=== PATIENT | female | born 1985 | race Caucasian/White ===

== ENCOUNTER 2017-04-03 22:49 | Emergency (ER) | payer MEDICAID, MEDICARE ==
[~2017-04-03] VITALS: Ht 165.1 cm; Wt 82.0 kg
[~2017-04-03 22:49] MED LIST: LEVE500 PO; ZONE100C4 PO
[2017-04-03 22:56] VITALS: BP 117/69; PULSE 78; RESP 18; TEMP 98.2; O2SAT 96
[2017-04-03] MEDS ORDERED: CLON.5 PO (23:14)
[2017-04-03] MEDS ORDERED: MORPHINE SULFATE 4 MG/ML INJ IV PUSH ONE (23:15)
[2017-04-03] MEDS ORDERED: LORazepam 2 MG/ML VIAL IV PUSH ONE (23:15)
--- NOTE | 2017-04-03 23:24 | PD ---
HPI . Seizure with resultant injury to her head and neck Chief Complaint: Seizure Time Seen by Provider: 23:05 Travel History International Travel<30 days: No Contact w/Intl Traveler<30days: No Traveled to known affect area: No History of Present Illness HPI Patient presents stating that she had a seizure tonight and fell and hit her head. She is now complaining of pain in the back of her head and in her neck. She states the pain is starting to radiate down into her back. Her states that she witnessed the seizure and that it was a grand mal seizure. She states that the patient fell straight backward and struck her head on the floor. It is a tile floor. She reports her last seizure was about a year ago. She reports compliance with medications. She reports no known reason for a breakthrough seizure such as alcohol or drug use, lack of sleep etc. The only injury was to her head and neck. She did not bite her tongue. No injury to her arms or legs. No bowel or bladder incontinence. Her neck pain is exacerbated by movement. She rates her head and neck pain as 10/10. PFSH Past Medical History Bipolar Disorder: Yes Anxiety: Yes Diminished Hearing: No Immunizations Current: Yes Seizures: Yes Tetanus Vaccination: < 5 Years ?: Not LMP: 03/22/2017 : 0 Past Surgical History Surgical History: No Previous Surgery Social History Alcohol Use: Yes (occasionaly ) Tobacco Use: No Substance Use: No Allergies-Medications (Allergen,Severity, Reaction): Coded Allergies: metoclopramide (Verified Allergy, Severe, 04/03/17) Reported Meds & Prescriptions Reported Meds & Active Scripts Active Reported Klonopin (Clonazepam) 0.5 Mg Tab 0.5 Mg PO TID Zonegran (Zonisamide) 100 Mg Cap 400 Mg PO DAILY Keppra (Levetiracetam) 500 Mg Tab 2,000 Mg PO DAILY Review of Systems Except as stated in HPI: all other systems reviewed are Neg HENT: Positive: Headaches, Neck Pain Neurologic: Positive: Seizures Physical Exam Narrative GENERAL: Awake and alert and fully oriented. SKIN: Warm and dry with no rash or lesions. HEAD: Normocephalic/atraumatic. EYES: Pupils are equal. Extraocular movements are intact. ENT: Mucous membranes are moist. No injury to the tongue. NECK: Diffusely tender. CARDIOVASCULAR: Regular rate and rhythm. RESPIRATORY: Nonlabored. MUSCULOSKELETAL: Atraumatic. NEUROLOGICAL: A and O 3. Radial nerves are intact. Peripheral exam is nonfocal. [id number] exam is intact. PSYCHIATRIC: Appropriate mood and affect. Data Data Last Documented VS Vital Signs Date Time Temp Pulse Resp B/P (MAP) Pulse Ox O2 Delivery O2 Flow Rate FiO2 04/03/17 23:54 15 04/03/17 22:56 98.2 78 117/69 (85) [address] Brain W/O Iv Contrast(Rout) (04/03/17 23:09) Ct Cerv Spine W/O Contrast (04/03/17 23:09) ^ Saline Lock (04/03/17 23:09) Lorazepam Inj (Ativan Inj) (04/03/17 23:15) Morphine Inj (Morphine Inj) (04/03/17 23:15) MDM Medical Decision Making Medical Screen Exam Complete: Yes Emergency Medical Condition: Yes Medical Record Reviewed: Yes (patient does have a history of a seizure disorder. She also has a history of syncope.) Differential Diagnosis My differential diagnosis of head trauma includes but is not limited to scalp contusion, concussion, intracerebral hemorrhage. Narrative Course This patient presents with an injury to her head and neck following a seizure. She has a known history of seizures. I have ordered a CT of her head and neck for further evaluation of the injury. I will treat her with Ativan and morphine. Last Impressions Head CT 04/03/172308 Signed Impressions: Service Date/Time: Monday, April 03, 2017 23:44 - CONCLUSION: Normal examination. Bennie White MD Cervical Spine CT 04/03/172308 Signed Impressions: Service Date/Time: Monday, April 03, 2017 23:44 - CONCLUSION: Normal examination. Bennie White MD Diagnosis Primary Impression: Seizure Additional Impressions: Head injury Qualified Codes: S09.90XA - Unspecified injury of head, initial encounter Neck strain Qualified Codes: S16.1XXA - Strain of muscle, fascia and tendon at neck level , initial encounter Patient Instructions: Cervical Strain (DC), General Instructions, Generalized Tonic Clonic Seizures (DC), Scalp Contusion in Adults (ED) Med/Other Pt SpecificInfo: Prescription(s) given Scripts Cyclobenzaprine (Flexeril) 10 Mg Tab 10 MG PO TID for Muscle Spasm, #30 TAB 0 Refills Prov: Corina Hartman MD 04/04/17 Acetaminophen-Codeine (Tylenol-Codeine #3) 300-30 mg Tab 1 TAB PO Q4H Y for PAIN, #12 TAB 0 Refills Prov: Corina Hartman MD 04/04/17 Disposition: 01 DISCHARGE HOME Condition: Stable Corina Hartman MD Apr 03, 2017 23:24
[2017-04-03 23:54] VITALS: RESP 15
--- NOTE | 2017-04-04 00:11 | RADRPT ---
EXAM DATE/TIME: 04/03/2017 23:44 [facility] COMPARISON: No previous studies available for comparison. INDICATIONS : Head and neck pain post seizure. RADIATION DOSE: 28.35 CTDIvol (mGy) MEDICAL HISTORY : Seizures. SURGICAL HISTORY : None. ENCOUNTER: Initial ACUITY: 1 day PAIN SCALE: 6/10 LOCATION: cranial TECHNIQUE: Multiple contiguous axial images were obtained of the head. Using automated exposure control and adj ustment of the mA and/or kV according to patient size, radiation dose was kept as low as reasonably a chievable to obtain optimal diagnostic quality images. DICOM format image data is available electro nically for review and comparison. FINDINGS: CEREBRUM: The ventricles are normal for age. No evidence of midline shift, mass lesion, hemorrhage or acute in farction. No extra-axial fluid collections are seen. POSTERIOR FOSSA: The cerebellum and brainstem are intact. The 4th ventricle is midline. The cerebellopontine angle i s unremarkable. EXTRACRANIAL: The visualized portion of the orbits is intact. SKULL: The calvaria is intact. No evidence of skull fracture. CONCLUSION: Normal examination. Bennie hWite MD on April 04, 2017 at 0:09 Board Certified Radiologist. This report was verified electronically.
--- NOTE | 2017-04-04 00:13 | RADRPT ---
EXAM DATE/TIME: 04/03/2017 23:44 [facility] COMPARISON: No previous studies available for comparison. INDICATIONS : Trauma, fall. Post seizure. RADIATION DOSE: 19.49 CTDIvol (mGy) MEDICAL HISTORY : Seizures. SURGICAL HISTORY : None. ENCOUNTER: Initial ACUITY: 1 day PAIN SCALE: 7/10 LOCATION: neck TECHNIQUE: Volumetric scanning of the cervical spine was performed. Multiplanar reconstructions in the sagittal, coronal and oblique axial planes were performed. Using automated exposure control and adjustment o f the mA and/or kV according to patient size, radiation dose was kept as low as reasonably achievable to obtain optimal diagnostic quality images. DICOM format image data is available electronically f or review and comparison. FINDINGS: VERTEBRAE: Normal vertebral body height. ALIGNMENT: No evidence of subluxation. C2-C3: The bony spinal canal is normal in size. No evidence of disc bulge or herniation. The neural forami na are bilaterally patent. C3-C4: The bony spinal canal is normal in size. No evidence of disc bulge or herniation. The neural forami na are bilaterally patent. C4-C5: The bony spinal canal is normal in size. No evidence of disc bulge or herniation. The neural forami na are bilaterally patent. C5-C6: The bony spinal canal is normal in size. No evidence of disc bulge or herniation. The neural forami na are bilaterally patent. C6-C7: The bony spinal canal is normal in size. No evidence of disc bulge or herniation. The neural forami na are bilaterally patent. C7-T1: The bony spinal canal is normal in size. No evidence of disc bulge or herniation. The neural forami na are bilaterally patent. CONCLUSION: Normal examination. Bennie White MD on April 04, 2017 at 0:09 Board Certified Radiologist. This report was verified electronically.
[2017-04-04] MEDS ORDERED: CYCL1TAB29 PO (00:24)
[2017-04-04] MEDS ORDERED: TYLETAB34 PO (00:24)
[2017-04-04 00:46] VITALS: BP 90/59
== END 2017-04-04 00:56 | disposition home or self-care (01) ==
LOC: NEPD 22:49
DX: G40.409 Other generalized epilepsy and epileptic syndromes, not intractable, without status epilepticus (principal); S09.90XA Unspecified injury of head, initial encounter; S16.1XXA Strain of muscle, fascia and tendon at neck level, initial encounter; F31.9 Bipolar disorder, unspecified; F41.9 Anxiety disorder, unspecified; W18.30XA Fall on same level, unspecified, initial encounter; Z79.899 Other long term (current) drug therapy
CPT/HCPCS: 70450; 72125; 96374; 96375; 99285; J2060; J2270

== ENCOUNTER 2017-04-04 13:19 | Emergency (ER) | payer MEDICAID, MEDICARE ==
[~2017-04-04 13:19] MED LIST changes: +CLON.5 PO; +CYCL1TAB29 PO; +TYLETAB34 PO
[2017-04-04 13:22] VITALS: BP 105/59; PULSE 109; RESP 16; TEMP 98.4; TEMP 99; O2SAT 98
--- NOTE | 2017-04-04 13:42 | PD ---
HPI Chief Complaint: Cardiac Complaint Time Seen by Provider: 13:23 Travel History International Travel<30 days: No Contact w/Intl Traveler<30days: No Traveled to known affect area: No History of Present Illness HPI The patient was seen and examined in the presence of the nurse. This patient got in an argument with her significant other. she became stressed and anxious and developed left-sided chest pain. Pain is worse with pressure on it or movement. Symptoms severity is moderate. Duration is one hour. No alleviating factors. No history of cardiac disease. Symptoms exacerbated by stress PFSH Past Medical History Bipolar Disorder: Yes Anxiety: Yes Diminished Hearing: No Immunizations Current: Yes Seizures: Yes ?: Not : 0 Social History Alcohol Use: Yes (occasionaly ) Tobacco Use: No Substance Use: No Allergies-Medications (Allergen,Severity, Reaction): Coded Allergies: metoclopramide (Verified Allergy, Severe, 04/03/17) Reported Meds & Prescriptions Reported Meds & Active Scripts Active Flexeril (Cyclobenzaprine HCl) 10 Mg Tab 10 Mg PO TID Tylenol-Codeine #3 (Acetaminophen-Codeine) 300-30 mg Tab 1 Tab PO Q4H PRN Reported Klonopin (Clonazepam) 0.5 Mg Tab 0.5 Mg PO TID Zonegran (Zonisamide) 100 Mg Cap 400 Mg PO DAILY Keppra (Levetiracetam) 500 Mg Tab 2,000 Mg PO DAILY Review of Systems General / Constitutional: No: Fever Eyes: No: Visual changes HENT: No: Headaches Cardiovascular: Positive: Chest Pain or Discomfort Respiratory: No: Shortness of Breath Gastrointestinal: No: Abdominal Pain Genitourinary: No: Dysuria Musculoskeletal: No: Pain Skin: No Rash Neurologic: No: Weakness Psychiatric: Positive: Anxiety, No: Depression Endocrine: No: Polydipsia Hematologic/Lymphatic: No: Easy Bruising Physical Exam Narrative GENERAL: Well-nourished, well-developed patient in no apparent distress. SKIN: Focused skin assessment reveals no rash and nodules. Skin is Warm and dry. HEAD: Atraumatic. Normocephalic. EYES: Pupils equal and round. No scleral icterus. No injection or drainage. ENT: No nasal bleeding or discharge. Mucous membranes pink and moist. NECK: Trachea midline. No JVD. CARDIOVASCULAR: Regular rate and rhythm. No murmur appreciated. RESPIRATORY: No accessory muscle use. Clear to auscultation. Breath sounds equal bilaterally. GASTROINTESTINAL: Abdomen soft, non-tender, nondistended. Hepatic and splenic margins not palpable. MUSCULOSKELETAL: No obvious deformities. No clubbing. No cyanosis. No edema. Readily reproducible left upper chest wall tenderness replicates her complaints NEUROLOGICAL: Awake and alert. No obvious cranial nerve deficits. Motor grossly within normal limits. Normal speech. PSYCHIATRIC: Anxious mood and affect; insight and judgment normal. Data Data Last Documented VS Vital Signs Date Time Temp Pulse Resp B/P (MAP) Pulse Ox O2 Delivery O2 Flow Rate FiO2 04/04/17 13:45 Room Air 04/04/17 13:22 99.0 109 16 105/59 (74) 98 Orders Orders Electrocardiogram (04/04/17 13:37) Basic Metabolic Panel (Bmp) (04/04/17 13:37) Ckmb (Isoenzyme) Profile (04/04/17 13:37) Complete Blood Count With Diff (04/04/17 13:37) Troponin I (04/04/17 13:37) Chest, Single Ap (04/04/17 13:37) Ecg Monitoring (04/04/17 13:37) Iv Access Insert/Monitor (04/04/17 13:37) Oximetry (04/04/17 13:37) Sodium Chloride 0.9% Flush (Ns Flush) (04/04/17 13:45) Labs Laboratory Tests Test 04/04/17 13:40 White Blood Count 17.2 TH/MM3 Red Blood Count 4.49 MIL/MM3 Hemoglobin 13.8 GM/DL Hematocrit 40.4 % Mean Corpuscular Volume 90.0 FL Mean Corpuscular Hemoglobin 30.7 PG Mean Corpuscular Hemoglobin Concent 34.2 % Red Cell Distribution Width 13.0 % Platelet Count 246 TH/MM3 Mean Platelet Volume 9.3 FL Neutrophils (%) (Auto) 83.7 % Lymphocytes (%) (Auto) 10.3 % Monocytes (%) (Auto) 5.3 % Eosinophils (%) (Auto) 0.2 % Basophils (%) (Auto) 0.5 % Neutrophils # (Auto) 14.4 TH/MM3 Lymphocytes # (Auto) 1.8 TH/MM3 Monocytes # (Auto) 0.9 TH/MM3 Eosinophils # (Auto) 0.0 TH/MM3 Basophils # (Auto) 0.1 TH/MM3 CBC Comment DIFF FINAL Differential Comment Blood Urea Nitrogen 7 MG/DL Creatinine 0.75 MG/DL Random Glucose 127 MG/DL Calcium Level 8.8 MG/DL Sodium Level 138 MEQ/L Potassium Level 3.8 MEQ/L Chloride Level 112 MEQ/L Carbon Dioxide Level 16.5 MEQ/L Anion Gap 10 MEQ/L Estimat Glomerular Filtration Rate 91 ML/MIN Total Creatine Kinase 71 U/L Troponin I LESS THAN 0.02 NG/ML MDM Medical Decision Making Medical Screen Exam Complete: Yes Emergency Medical Condition: Yes Medical Record Reviewed: Yes Differential Diagnosis Differential diagnosis includes ND, angina, pericarditis, pleurisy, GERD, anxiety. Narrative Course I have reviewed the patient's electronic medical record. Reviewed her workup from yesterday. She had negative CT of brain and C-spine IV placed I reviewed the EKG shows sinus rhythm without ST elevation. I reviewed the chest x-ray which is normal Extended cardiac monitoring shows sinus rhythm without ectopy CBC is normal Metabolic profile is normal CK is normal Troponin is normal This patient clearly has musculoskeletal chest wall pain. ACS is not clinically suspected. Cardiac workup is negative. Diagnosis Primary Impression: Musculoskeletal chest pain Additional Instructions: The patient was advised to follow up with their physician and return if they worsen. Med/Other Pt SpecificInfo: Other Disposition: 01 DISCHARGE HOME Condition: Stable Arpan Stein MD Apr 04, 2017 13:42
[2017-04-04] MEDS ORDERED: SODIUM CHLORIDE 0.9% FLUSH 10 ML FLUSH IVF PRN (13:45)
[2017-04-04 14:01] LABS: AUTOMATED NEUTROPHIL # 14.4 TH/MM3 (1.8-7.7); BASOPHIL # 0.1 TH/MM3 (0-0.2); BASOPHIL % 0.5 % (0.0-2.0); EOSINOPHIL % 0.2 % (0.0-4.0); HEMATOCRIT 40.4 % (35.0-46.0); HEMO FLAGS DIFF FINAL; LYMPH % 10.3 % (9.0-44.0); LYMPHOCYTE # 1.8 TH/MM3 (1.0-4.8); MEAN CORPUSCULAR HEMOGLOBIN 30.7 PG (27.0-34.0); MEAN CORPUSCULAR HGB CONC 34.2 % (32.0-36.0); MONO % 5.3 % (0.0-8.0); NEUT % 83.7 % (16.0-70.0); PLATELET COUNT 246 TH/MM3 (150-450); RED BLOOD COUNT 4.49 MIL/MM3 (4.00-5.30); WHITE BLOOD COUNT 17.2 TH/MM3 (4.0-11.0)
--- NOTE | 2017-04-04 14:01 | RADRPT ---
EXAM DATE/TIME: 04/04/2017 13:53 [facility] COMPARISON: No previous studies available for comparison. INDICATIONS : Left axillary chest pain. MEDICAL HISTORY : None. SURGICAL HISTORY : None. ENCOUNTER: Initial ACUITY: 1 day PAIN SCORE: 4/10 LOCATION: Left axillary. FINDINGS: A single view of the chest demonstrates the lungs to be symmetrically aerated without evidence of mas s, infiltrate or effusion. The cardiomediastinal contours are unremarkable. Osseous structures are intact. CONCLUSION: 1. No acute cardiopulmonary disease. Oscar Watt MD on April 04, 2017 at 13:59 Board Certified Radiologist. This report was verified electronically.
[2017-04-04 14:20] LABS: ANION GAP 10 MEQ/L (5-15); BICARBONATE 16.5 MEQ/L (21.0-32.0); BLOOD UREA NITROGEN 7 MG/DL (7-18); CHLORIDE 112 MEQ/L (98-107); GLOMERULAR FILTRATION RATE 91 ML/MIN (>89); POTASSIUM 3.8 MEQ/L (3.5-5.1); SODIUM (NA) 138 MEQ/L (136-145)
[2017-04-04 14:30] LABS: CREATINE KINASE 71 U/L (26-192)
--- NOTE | 2017-04-04 16:21 | EKG ---
Date Performed: 04/04/2017 Time Performed: 13:33:17 PTAGE: 32 years EKG: SINUS TACHYCARDIA INCOMPLETE RIGHT BUNDLE BRANCH BLOCK ABNORMAL RHYTHM ECG Compared to prio r electrocardiogram, rate has decreased PREVIOUS TRACING : 05/29/2016 23.44 DOCTOR: Irvin Harmon Interpretating Date/Time 04/04/2017 16:19:48
== END 2017-04-04 15:51 | disposition home or self-care (01) ==
LOC: NEPE 13:19
DX: R07.89 Other chest pain (principal); F31.9 Bipolar disorder, unspecified; F41.9 Anxiety disorder, unspecified; G40.909 Epilepsy, unspecified, not intractable, without status epilepticus; Z79.899 Other long term (current) drug therapy
CPT/HCPCS: 71010; 80048; 82550; 84484; 85025; 93005